=== PATIENT | female | born 1985 | race Caucasian/White ===

== ENCOUNTER 2017-01-19 09:13 | Emergency (ER) | payer MEDICAID ==
[~2017-01-19] VITALS: Wt 90.9 kg
[2017-01-19] MEDS ORDERED: KETOROLAC 60 MG INJ IM STA (09:44)
[2017-01-19] MEDS ORDERED: DIAZEPAM 5 MG TAB PO ONE (10:00)
--- NOTE | 2017-01-19 10:45 | RADRPT ---
PROCEDURE: XR Lumbar Spine. CLINICAL INDICATION: back pain TECHNIQUE: AP, lateral and cone-down lateral view of the lumbar spine were obtained. COMPARISON: No prior studies are available for comparison. FINDINGS: There is mild vertebral spondylosis. There is normal vertebral mineralization and alignment. No acute fracture. No subluxation of vertebral bodies. The disc spaces are normal in appearance. The posterior elements are unremarkable. The soft tissues appear normal. There is an IUD within the pelvis. RPTAT: AA IMPRESSION: Mild vertebral spondylosis. .Brian Enciso MD, MD Date Time Electronically viewed and signed by .Brian Enciso MD, on 01/19/2017 10:45 .S/
--- NOTE | 2017-01-19 10:46 | RADRPT ---
PROCEDURE: XR thoracic Spine. CLINICAL INDICATION: Back pain TECHNIQUE: AP, lateral and swimmer's views of the thoracic spine were obtained. COMPARISON: No prior studies are available for comparison. FINDINGS: The lower thoracic spine is better seen on the lateral view of the lumbar spine. There is normal vertebral mineralization and alignment. There is mild spondylosis of the thoracic spine. No acute fracture or subluxation is seen. The disc spaces are normal in appearance. The posterior elements are unremarkable. The soft tissues appear normal. RPTAT: AA IMPRESSION: Mild spondylosis. No acute fracture. .Brian Enciso MD, MD Date Time Electronically viewed and signed by .Brian Enciso MD, on 01/19/2017 10:46 .S/
[2017-01-19] MEDS ORDERED: IBUP-1542 PO (10:56)
[2017-01-19] MEDS ORDERED: HYDR-906 PO (10:56)
[2017-01-19] MEDS ORDERED: ORPH100T PO (10:58)
--- NOTE | 2017-01-19 11:07 | ERD ---
ER Documentation Chief Complaint Chief Complaint back pain, denies trauma HPI This is a 31-year-old female presents to the ER with lower back pain that started yesterday. Patient was taking shower and when she was driving herself she felt severe pain. Patient has had this kind of pain in the past. Pain is described as sharp and it is intermittent. It is worse whenever she is walking or whenever she lays on her back. Patient denies any urinary bowel incontinence she denies any saddle like anesthesia. She denies any fevers or chills. Patient tried ibuprofen however it did not work. ROS 12 point review of systems was done, all negative except per HPI. Medications Home Meds Active Scripts Orphenadrine Citrate (Norflex) 100 Mg Tablet.sa, 100 MG PO BID for 3 Days, TAB.SA Prov:YONY,KEVAN C 01/19/17 Ibuprofen* (Motrin*) 600 Mg Tab, 600 MG PO Q6, #30 TAB Prov:YONY,KEVAN C 01/19/17 Hydrocodone/Acetaminophen ([place] 5-325 Tablet) 1 Each Tablet, 1 TAB PO Q6H Y for PAIN, #20 TAB Prov:YONY,KEVAN C 01/19/17 Allergies Allergies: Coded Allergies: Penicillins (Verified Allergy, Unknown, RASHES, 01/19/17) PMhx/Soc Medical and Surgical Hx: pt denies Medical Hx, pt denies Surgical Hx History of Surgery: No Anesthesia Reaction: No Hx Neurological Disorder: No Hx Respiratory Disorders: No Hx Cardiac Disorders: No Hx Psychiatric Problems: No Hx Miscellaneous Medical Probl: No Hx Alcohol Use: No Hx Substance Use: No Hx Tobacco Use: No Smoking Status: Never smoker Physical Exam Vitals Vital Signs Date Time Temp Pulse Resp B/P Pulse Ox O2 Delivery O2 Flow Rate FiO2 01/19/17 09:23 98.3 96 20 134/78 98 Physical Exam GENERAL: The patient is well developed and appropriate for usual state of health , in no apparent distress. NECK: C-spine is soft and supple. There is no cervical lymphadenopathy. CHEST: Clear to auscultation bilaterally. There are no rales, wheezes or rhonchi. HEART: Regular rate and rhythm. No murmurs, clicks, rubs or gallops. ABDOMEN: Soft, nontender and nondistended. Good bowel sounds. No rebound or guarding. No gross peritonitis. No gross organomegaly or masses. No Roman sign or McBurney point tenderness. No pulsatile abdominal mass. BACK: No midline or flank tenderness. Tender to palpation from L3-L5. Tense paraspinal muscles. Negative leg raise test. No step- offs. EXTREMITIES: Equal pulses bilaterally. There is no peripheral clubbing, cyanosis or edema. No focal swelling or erythema. Full range of motion. Grossly neurovascularly intact. NEURO: Alert and oriented. Cranial nerves II through XII are intact. Motor strength in all 4 extremities with 5/5 strength. Sensation grossly intact. Normal speech and gait. SKIN: There is no apparent rash or petechia. The skin is warm and dry. Results 24 hrs Current Medications Medications (Trade) Dose Ordered Sig/Kyrie Route PRN Reason Start Time Stop Time Status Last Admin Dose Admin Ketorolac Tromethamine (Toradol) 60 mg ONCE STAT IM 01/19/17 09:44 01/19/17 09:46 DC 01/19/17 10:09 Diazepam (Valium) 5 mg ONCE ONCE PO 01/19/17 10:00 01/19/17 10:01 DC 01/19/17 10:07 Procedures/MDM Differential Diagnosis includes but is not limited to back strain, vertebral fracture, epidural abscess, cauda equina, herniated disc, AAA rupture, kidney stones, UTI, pyelonephritis. This is likely muscular in nature, suspicion for fracture dislocation is low. Suspicion for epidural abscess, cauda equina, discitis is low patient is neurovascularly intact and is afebrile and well- appearing. She will be sent home with [place], Norflex, ibuprofen. She is to follow-up with her primary care doctor within 1-2 days or return to ER sooner if symptoms worsen. My medical decision making shared with the patient she understands and agrees with plan Departure Diagnosis: Primary Impression: Back pain Condition: Stable Patient Instructions: Back Pain (Acute Or Chronic) Additional Instructions: Call your primary care doctor TOMORROW for an appointment during the next 1-2 days.See the doctor sooner or return here if your condition worsens before your appointment time. KEVAN BHAKTA Jan 19, 2017 11:07
== END 2017-01-19 11:05 | disposition home or self-care (01) ==
LOC: FTE 09:13
DX: M54.5 Low back pain (principal)
CPT/HCPCS: 72072; 72100; 96372; J1885; Z7502; Z7610